=== PATIENT | female | born 1950 | race Caucasian/White ===

== ENCOUNTER 2017-12-18 10:28 | Day surgery (SDC) | payer MEDICARE ==
[2017-12-18] MEDS: NS 1,000 ML IV (10:30)
[2017-12-18] MEDS ORDERED: PROPOFOL 200 MG/20 ML VIAL As Ordered (12:29)
[2017-12-18] MEDS ORDERED: LIDOCAINE 2% INJ 100 MG/5 ML SDV (FOR ANES.) As Ordered (12:29)
== END 2017-12-18 13:19 | disposition home or self-care (01) ==
LOC: M OPP 10:28
DX: Z12.11 Encounter for screening for malignant neoplasm of colon (principal); D12.3 Benign neoplasm of transverse colon; K64.0 First degree hemorrhoids; B00.9 Herpesviral infection, unspecified; M54.2 Cervicalgia; Z78.0 Asymptomatic menopausal state; R06.83 Snoring; Z91.018 Allergy to other foods; Z87.891 Personal history of nicotine dependence
CPT/HCPCS: 45385

== ENCOUNTER 2023-03-04 06:38 | Day surgery (SDC) | payer MEDICARE ==
[~2023-03-04] VITALS: Ht 162.6 cm; Wt 61.7 kg
[~2023-03-04 06:38] MED LIST: NS 1,000 ML IV ONE
[2023-03-04] MEDS ORDERED: propofoL 200 MG/20 ML VIAL As Ordered ONE ×2 (07:37→07:47)
[2023-03-04 08:01] VITALS: TEMP 97.2
[2023-03-04 08:19] VITALS: BP 148/74; O2SAT 98
== END 2023-03-04 08:34 | disposition home or self-care (01) ==
LOC: M OPP 06:38
PROVIDERS: ATTEND Internal Medicine Gastroenterology
DX: Z86.010 Personal history of colon polyps (principal); K64.0 First degree hemorrhoids; K57.30 Diverticulosis of large intestine without perforation or abscess without bleeding; Z87.891 Personal history of nicotine dependence; Z91.018 Allergy to other foods

== ENCOUNTER 2024-11-16 08:00 | Day surgery (SDC) | payer MEDICARE ==
[~2024-11-16] VITALS: Ht 162.6 cm; Wt 58.1 kg
[~2024-11-16 08:00] MED LIST changes: +ATOR40TA75 PO; +LR 1,000 ML IV SCH; +MIDAZOLAM INJ 2MG/2ML VIAL As Ordered ONE; -NS 1,000 ML IV ONE
[2024-11-16] MEDS: TETRACAINE 0.5% OPHTH SOLN 4ML OD SCH (08:43)
[2024-11-16] MEDS: CYCLOPENTOLATE 1% OPHTH SOLN 2ML BTL OD SCH (08:43)
[2024-11-16] MEDS: FLURBIPROFEN 0.03% OPHTH SOLN 2.5 ML OD SCH (08:43)
[2024-11-16] MEDS: PHENYLEPHRINE 2.5% OPHTH SOL 2ML OD SCH (08:43)
[2024-11-16] MEDS: LIDOCAINE 1% SDV 5ML VIAL As Ordered ONE (10:26)
[2024-11-16] MEDS: CEFUROXIME 1MG/0.1ML INTRACAMERAL INJ As Ordered ONE (10:26)
[2024-11-16 10:51] VITALS: BP 147/79; TEMP 97.8; O2SAT 96
== END 2024-11-16 11:07 | disposition home or self-care (01) ==
LOC: M SDC 08:00
PROVIDERS: ATTEND Ophthalmology
DX: H25.11 Age-related nuclear cataract, right eye (principal); Z91.018 Allergy to other foods; Z79.899 Other long term (current) drug therapy; F10.90 Alcohol use, unspecified, uncomplicated
CPT/HCPCS: 66984; J0697; J2250; V2632